=== PATIENT | male | born 1960 | race Caucasian/White ===

== ENCOUNTER → 2019-07-30 10:12 | Outpatient (BNVA) | payer MEDICARE, SELFPAY | PROVIDERS: Visit Provider Specialist | DX: G35 Multiple sclerosis (principal); G30.9 Alzheimer's disease, unspecified; F02.80 Dementia in other diseases classified elsewhere, unspecified severity, without behavioral disturbance, psychotic disturbance, mood disturbance, and anxiety; F17.210 Nicotine dependence, cigarettes, uncomplicated | CPT/HCPCS: 96116; 99214 ==

== ENCOUNTER → 2019-10-01 15:00 | Outpatient (BNVA) | payer MEDICARE, SELFPAY | PROVIDERS: Visit Provider Specialist | DX: G35 Multiple sclerosis (principal); F17.210 Nicotine dependence, cigarettes, uncomplicated | CPT/HCPCS: 99213 ==

== ENCOUNTER 2020-04-24 08:26 | Emergency (ER) | payer MEDICARE, SELFPAY ==
[2020-04-24 08:29] VITALS: BP 148/100; PULSE 81; RESP 18; O2SAT 100; BMI 20.5
--- NOTE | 2020-04-24 08:33 | ECG_ITS ---
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 Measurements Intervals [place] Rate: 61 P: 78 CA: 187 QRS: -58 QRSD: 114 T: 33 QT: 398 QTc: 402 Interpretive Statements SINUS RHYTHM LEFT ANTERIOR FASCICULAR BLOCK [QRS AXIS <= -45, QR IN I, RS IN II] Compared to ECG 08/19/2014 18:56:22 No significant changes Electronically Signed On 04-24-2020 21:35:57 CDT by Xena Chamorro M.D. [id number]
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
--- NOTE | 2020-04-24 09:05 | PC.NURSE ---
Patient refused to have blood drawn. Physician notified.
--- NOTE | 2020-04-24 10:04 | DCPLANNER ---
technical manager was asked to call [facility] to see if the [facility] had any [facility] beds [facility] a [facility]. technical manager called the [facility], was told that facility did have a male bed. Patient would need to go to Director Of Program Management Station and get a Wants and Warrants check and if that came back clear that patient could go to the [facility]. technical manager informed ED physician, which wanted community development planner to call the Director Of Program Management station and check on the wants and warrants check for patient, which was clear. technical manager called the [facility] and explained that the check for wants and warrants was clear, and ask the [facility]ci if they would call the chalk machine operator department and they would tell them that the check came back clear. technical manager informed ED physician of this, patient will be discharged to go the homeless [facility] when he leaves the ED.
[2020-04-24 10:13] VITALS: BP 168/91; PULSE 66; RESP 16; O2SAT 100
== END 2020-04-24 10:13 | disposition home or self-care (01) ==
PROVIDERS: Emergency Provider Family Medicine
DX: G30.9 Alzheimer's disease, unspecified (principal); F02.80 Dementia in other diseases classified elsewhere, unspecified severity, without behavioral disturbance, psychotic disturbance, mood disturbance, and anxiety; Z59.0 Homelessness; F17.210 Nicotine dependence, cigarettes, uncomplicated
CPT/HCPCS: 12345; 93005; 99281; 99283

== ENCOUNTER 2020-04-24 18:23 | Emergency (ER) | payer MEDICARE, SELFPAY ==
[2020-04-24 19:28] VITALS: BP 176/84; PULSE 75; RESP 15; TEMP 36.4; O2SAT 99; BMI 19.8
[2020-04-24 20:33] LABS: Basophils # 0.1 10^3/uL (0.0-0.1); Basophils % 0.6 %; Eosinophils # 0.1 10^3/uL (0.0-0.8); Eosinophils % 1.1 %; Hematocrit 42.9 % (42.0-52.0); Lymphocytes # 2.8 10^3/uL (0.8-4.8); Lymphocytes % 27.5 %; Mean Corpuscular HGB Conc 32.6 g/dL (30.0-36.0); Mean Corpuscular Hemoglobin 30.3 pg (28.0-34.0); Mean Corpuscular Volume 92.9 fL (80-94); Mean Platelet Volume 10.4 fL (7.4-10.4); Monocytes # 0.6 10^3/uL (0.2-0.9); Monocytes % 6.3 %; Neutrophils # 6.56 10^3/uL (1.8-7.7); Neutrophils % 64.3 %; Nucleated Red Blood Cells % 0 %; Platelet Count 283 10^3/cmm (130-400); Red Blood Count 4.62 10^6/uL (4.1-5.3); Red Cell Distribution Width 13.3 % (12.1-15.1); White Blood Count 10.2 10^3/uL (4.0-10.0)
[2020-04-24 20:51] LABS: INR 0.92 (0.8-1.2)
[2020-04-24 20:59] LABS: Alanine Aminotransferase 8 U/L (0-41); Albumin Level 4.2 g/dL (3.5-5.2); Alkaline Phosphatase 54 IU/L (40-130); Anion Gap 16.9 (5-19); Aspartate Amino Transferase 12 U/L (0-40); Blood Urea Nitrogen 10 mg/dL (8-23); Calcium 9.7 mg/dL (8.5-10.5); Carbon Dioxide 22 mmol/L (22-29); Chloride 106 mmol/L (98-107); Globulin 2.5 g/dL (1.3-4.6); Glomerular Filtration Rate 98.3 mL/min (90-130); Glucose 92 mg/dL (65-115); Osmolality Calculated 291 mOsm/kg (285-295); Potassium 3.9 mmol/L (3.5-5.1); Sodium 141 mmol/L (136-145); Total Bilirubin 0.3 mg/dL (0.15-1.2); Total Protein 6.7 g/dL (6.6-8.7)
[2020-04-24 23:40] VITALS: BP 146/83; PULSE 64; RESP 15; O2SAT 99
[2020-04-25 00:30] VITALS: BP 138/87; PULSE 70; RESP 16; O2SAT 98
--- NOTE | 2020-04-25 00:49 | ED_ITS ---
HPI - General Adult General: Chief complaint: General Medical Stated complaint: rectal bleeding Time Seen by Provider: 04/25/20 00:36 History of Present Illness: HPI narrative: Patient is a 59-year-old male who comes to the ED with lower abdominal pain and blood in the stool. Patient has a past medical history of multiple sclerosis. Patient was seen here earlier today in the ED with different complaint and discharged. He says he has had red blood in his stool that started approximately 15 years ago. He says the problem has been on and off again for years now. He describes his stool as loose and there is bright red blood on tissue paper when he wipes and in toilet. He has a bowel movement approximately every couple days. His pain is mild located in the lower abdomen and he rates it a 6 out of 10. Pain described as cramping. Patient thinks his last colonoscopy was approximately 10 years ago. Associated symptoms: Deny chest pain, dyspnea, headache(s), nausea, rash, palpitations or vomiting Review of Systems Const: Denies: fever(s), chills or fatigue Eyes: Denies: change in vision or eye discomfort ENMT: Denies: throat pain, odynophagia, nasal discharge or nasal congestion Card: Denies: chest pain, palpitations, edema, swelling of feet/ankles, dyspnea on exertion or orthopnea Resp: Denies: dyspnea, productive cough or non-productive cough GI: Reports: abdominal pain and hematochezia (Bright red blood on tissue paper and in toilet.); Denies: nausea, vomiting, diarrhea or constipation : Denies: flank pain, difficulty urinating, dysuria or hematuria Musc: Denies: neck pain, back pain or extremity swelling Skin/Breast: Denies: rash or new lesions Neuro: Denies: headache(s), numbness in extremities or weakness in extremities PFSH ED PFSH: Family History Other CAD (coronary artery disease) Cancer Diabetes Denies family history of Stroke Social History Smoking and tobacco status: current every day smoker cigarettes Packs smoked per day: 2 Alcohol intake: former History of recent travel: No Physical Exam Const: COMMON NORMALS: no acute distress, patient oriented x3 and alert GENERAL APPEARANCE: cooperative and comfortable HENMT: COMMON NORMALS: normocephalic HEAD & SCALP: normocephalic MOUTH: Normal oral and palatal mucosa present THROAT: posterior oropharynx normal and uvula midline Eye: COMMON NORMALS: Equal, round and reactive pupils present PUPIL: Yes Equal, round and reactive pupils present Neck/C-Spine: COMMON NORMALS: supple GENERAL: Yes normal visual inspection Resp: COMMON NORMALS: normal respiratory effort, No retractions, No use of accessory muscles and clear to auscultation bilaterally AUSCULTATION: clear to auscultation bilaterally Cardio: COMMON NORMALS: regular rate, regular rhythm, S1 normal heart sound present, S2 normal heart sound present, No gallops present (Cardio), No clicks present (Cardio), No murmurs present (Cardio) and Peripheral pulses 2+ throughout RATE: regular rate RHYTHM: regular rhythm HEART SOUNDS: S1 normal heart sound present and S2 normal heart sound present PERIPHERAL PULSES: Peripheral pulses 2+ throughout GI: COMMON NORMALS: Normal to inspection, nondistended, normoactive bowel sounds present, Soft to palpation, non-tender and no masses PALPATION: Yes Soft to palpation : COMMON NORMALS: Yes no CVA tenderness BLADDER/KIDNEY EXAM: Yes no CVA tenderness Back/Pelvis: COMMON NORMALS: no CVA tenderness Extremity: COMMON NORMALS: normal to inspection and no pedal edema Neuro: COMMON NORMALS: patient oriented x3 and moves all extremities SENSORIUM/ORIENTATION: Yes alert Skin: GENERAL SKIN EXAM: dry skin Course Vital Signs: Vital signs: Vital Signs Temperature 97.6 F 04/24/20 19:28 Pulse Rate 70 04/25/20 00:30 Respiratory Rate 16 04/25/20 00:30 Blood Pressure 138/87 04/25/20 00:30 Pulse Oximetry 98 04/25/20 00:30 MDM - General Adult MDM Narrative: Medical decision making narrative: Patient is a 59-year-old male who comes to the ED with hematochezia and lower abdominal cramping. Patient says the symptoms are chronic in nature and he says they have been going on for the past 15 years. Patient's vitals are stable blood pressure 138/87, pulse 70, respirations 16, temp 97.6 and O2 saturation 98% on room air. Physical exam shows a patient in no acute distress or pain and rest of exam is unremarkable. Patient had a hemoglobin of 14 the rest of CBC, CMP and PT/INR were unremarkable. Due to patient's chronic nature of complaint, normal labs and stable vitals no further testing or imaging was performed and I placed a referral to case management for patient to be set up with a primary care physician for further outpatient evaluation. Patient was discharged and given a prescription of Bentyl to help with any abdominal cramping. I told patient that case management should be contacting him in the next couple days to set up an appointment with primary care physician. Return to ED precautions given. Patient understood and agreed with plan. Lab Data: Attestation: I reviewed the patient's lab results. Labs: Lab Results 04/24/20 04/24/20 04/24/20 Range/Units 20:17 20:17 20:17 WBC 10.2 H (4.0-10.0) 10^3/ uL RBC 4.62 (4.1-5.3) 10^6/u L Hgb 14.0 (11.7-16.6) g/dL Hct 42.9 (42.0-52.0) % MCV 92.9 (80-94) fL MCH 30.3 (28.0-34.0) pg MCHC 32.6 (30.0-36.0) g/dL RDW 13.3 (12.1-15.1) % Plt Count 283 (130-400) 10^3/c mm MPV 10.4 (7.4-10.4) fL Neut % (Auto) 64.3 % Lymph % (Auto) 27.5 % [place] % (Auto) 6.3 % Eos % (Auto) 1.1 % Baso % (Auto) 0.6 % Neut # (Auto) 6.56 (1.8-7.7) 10^3/u L Lymph # (Auto) 2.8 (0.8-4.8) 10^3/u L [place] # (Auto) 0.6 (0.2-0.9) 10^3/u L Eos # (Auto) 0.1 (0.0-0.8) 10^3/u L Baso # (Auto) 0.1 (0.0-0.1) 10^3/u L Nucleated RBC % (a uto) 0 % Nucleated RBCs # 0.0 /100WBC PT 12.60 (12.1-14.9) SECO NDS INR 0.92 (0.8-1.2) Sodium 141 (136-145) mmol/L Potassium 3.9 (3.5-5.1) mmol/L Chloride 106 (98-107) mmol/L Carbon Dioxide 22 (22-29) mmol/L Anion Gap 16.9 (5-19) BUN 10 (8-23) mg/dL Creatinine 0.8 (0.7-1.2) mg/dL GFR Calculation 98.3 (90-130) mL/min Glucose 92 (65-115) mg/dL Calculated Osmolal ity 291 (285-295) mOsm/k g Calcium 9.7 (8.5-10.5) mg/dL Total Bilirubin 0.3 (0.15-1.2) mg/dL AST 12 (0-40) U/L ALT 8 (0-41) U/L Alkaline Phosphata se 54 (40-130) IU/L Total Protein 6.7 (6.6-8.7) g/dL Albumin 4.2 (3.5-5.2) g/dL Globulin 2.5 (1.3-4.6) g/dL Discharge Plan Discharge Patient Disposition: Home Clinical Impression: Hematochezia Abdominal pain Qualifiers: Abdominal location: lower abdomen, unspecified Qualified Code(s): R10.30 - Lower abdominal pain, unspecified Condition: Stable Prescriptions: New dicyclomine 20 mg tablet 20 mg PO QID Qty: 30 RF: 0 No Action Tecfidera 240 mg capsule,delayed release(DR/EC) 240 mg PO BID Qty: 180 RF: 3 trazodone 100 mg tablet 100 mg PO DAILY Qty: 90 RF: 2 metoprolol succinate 25 mg tablet extended release 24 hr 50 mg PO BID Qty: 180 RF: 3 lisinopril 20 mg tablet 20 mg PO DAILY Qty: 90 RF: 3 donepezil 10 mg tablet 10 mg PO DAILY Qty: 90 RF: 3 Discharge Orders: Discharge Order (Routine); Ordered 04/25/20 Ordered By: Juan Velásquez Discharge Diet: Regular Discharge Activity: Resume usual activity Patient Instructions: Abdominal Pain (ED) Activity Restrictions/Additional Instructions: Follow-up with medical provider as directed. Case management should be contacting you in the next several days to set up an appointment with the primary care physician. Take medications as prescribed to help with abdominal pain. Return to the ER or your medical provider if condition worsens. Please read and understand discharge instructions. If any questions, please ask. Coding Level of Care Code ED Group Marketing Vp for Chg Fwd Exam Comprehensive
[2020-04-25] MEDS: HYDROcodone-acetaminophen 5-325 mg Tablet 1 TAB PO (01:15)
[2020-04-25 01:30] VITALS: BP 138/78; PULSE 78; RESP 18; O2SAT 96
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
--- NOTE | 2020-04-25 04:31 | PC.NURSE ---
Continues to sleep at this time
[2020-04-25 07:06] VITALS: BP 128/76; PULSE 88; RESP 18; O2SAT 96
--- NOTE | 2020-04-25 11:01 | DCPLANNER ---
computer systems manager had message to speak with patient about getting a primary care physician. Case manger called phone number [phone], unable to speak with patient or leave a voicemail at this time. Patient does not have a voicemail set up.
== END 2020-04-25 07:08 | disposition home or self-care (01) ==
PROVIDERS: Emergency Medicine; Emergency Provider Physician Assistant
DX: K92.1 Melena (principal); R10.30 Lower abdominal pain, unspecified; F17.210 Nicotine dependence, cigarettes, uncomplicated
CPT/HCPCS: 12345; 36415; 80053; 85025; 85610; 99281; 99283

== ENCOUNTER → 2020-06-17 15:43 | Outpatient (BNVA) | payer MEDICARE, SELFPAY | PROVIDERS: Visit Provider Specialist | DX: G35 Multiple sclerosis (principal); F17.210 Nicotine dependence, cigarettes, uncomplicated | CPT/HCPCS: 96116; 99215 ==

== ENCOUNTER → 2020-09-24 14:51 | Outpatient (BNVA) | payer MEDICARE, SELFPAY | PROVIDERS: Visit Provider Specialist | DX: G35 Multiple sclerosis (principal); F17.210 Nicotine dependence, cigarettes, uncomplicated | CPT/HCPCS: 99214; 99215 ==

== ENCOUNTER → 2021-01-28 13:31 | Outpatient (BNVA) | payer MEDICARE, SELFPAY | PROVIDERS: Visit Provider Specialist | DX: G35 Multiple sclerosis (principal); Z87.891 Personal history of nicotine dependence | CPT/HCPCS: 96116; 99214 ==

== ENCOUNTER → 2022-03-15 13:55 | Outpatient (BNVA) | payer MEDICARE, SELFPAY | PROVIDERS: Visit Provider Specialist | DX: G35 Multiple sclerosis (principal); Z59.89 Other problems related to housing and economic circumstances | CPT/HCPCS: 96116; 99214 ==

== ENCOUNTER → 2023-03-16 12:40 | Outpatient (BNVA) | payer MEDICARE, SELFPAY | PROVIDERS: Visit Provider Specialist | DX: G35 Multiple sclerosis (principal) | CPT/HCPCS: 99214 ==